=== PATIENT | female | born 1995 | race Caucasian/White ===

== ENCOUNTER 2017-03-15 04:18 | Emergency (ER) | payer OTHER ==
[2017-03-15] MEDS ORDERED: NS 0.9% 1000 ML* 1,000 ML IV ONE (04:58)
[2017-03-15 05:31] LABS: Urine Bacteria Absent (Absent); Urine Bilirubin Negative (Negative); Urine Glucose Negative (Negative); Urine Nitrite Negative (Negative)
[2017-03-15 06:23] LABS: Hematocrit 42 % (35-47); Hemoglobin 13.5 g/dl (12.0-16.0); Mean Corpuscular HGB Conc 33 g/dl (31-36); Mean Corpuscular Hemoglobin 27 pg (27-31); Mean Corpuscular Volume 82 fL (80-97); Mean Platelet Volume 10 um3 (7.4-10.4); Red Blood Count 5.09 10^6/ul (4.0-5.4); Red Cell Distribution Width 14 % (10.5-15); White Blood Count 13.3 10^3/ul (3.5-10.8)
[2017-03-15 06:40] LABS: ALT 16 U/L (7-52); AST 23 U/L (13-39); Albumin 4.8 g/dL (3.2-5.2); Alkaline Phosphatase 47 U/L (34-104); Anion Gap 9 mmol/L (2-11); Blood Urea Nitrogen 15 mg/dL (6-24); CO2 Carbon Dioxide 26 mmol/L (22-32); Calcium 10.4 mg/dL (8.6-10.3); Chloride 101 mmol/L (101-111); EGFR African American 91.9 (>60); EGFR Non-African American 71.4 (>60); Globulin 3.3 g/dL (2-4); Glucose 89 mg/dL (70-100); Lipase 18 U/L (11.0-82.0); Potassium 3.4 mmol/L (3.5-5.0); Sodium 136 mmol/L (133-145); Total Protein 8.1 g/dL (6.4-8.9)
[2017-03-15] MEDS ORDERED: Iohexol 300* (CONTRAST) 10 ML SDV IV ONE (06:56)
--- NOTE | 2017-03-15 08:17 | RAD ---
CLINICAL HISTORY: Nausea and lower abdominal pain. COMPARISON: None TECHNIQUE: Contrast enhanced CT examination of the abdomen and pelvis from the lung bases through the initial tuberosities. The patient received 16 mL Omnipaque 300 intravenously prior to imaging.The patient received oral contrast as well prior to imaging. FINDINGS: VISUALIZED LUNG BASES: The visualized lung bases are grossly clear. There is no pleural effusion. ABDOMEN AND PELVIS: The liver, spleen, pancreas and adrenal glands are grossly normal in appearance. The gallbladder is normal. The kidneys are normal in appearance without focal mass, calcification or signs of hydronephrosis. The oral contrast has progressed as far as the base of the cecum. The small and large bowel are not distended. The appendix is identified in the right lower quadrant measuring just under 8 mm in diameter abscesses coronal image 31 and sagittal image 31). There is trace oral contrast in the proximal portion of the appendix. There is no definite periappendiceal inflammatory change. There is no periappendiceal fluid collection or free air anywhere in the peritoneum. There is a moderate to large amount of stool throughout the length of the colon but no pathologic dilatation. There is no gross retroperitoneal or mesenteric lymphadenopathy. The pelvic viscera is normal in appearance. The abdominal aorta and iliac arteries are normal in course and diameter. There are no sinister bone lesions. IMPRESSION: 1. The appendix is top normal in diameter measuring just under 8 mm but lacks acute inflammatory changes associated with appendicitis. 2. Incidentally noted is a moderate to large amount of stool throughout the length of the colon without pathologic dilatation. Please correlate to symptoms and history of constipation. 3. The CT is otherwise normal.
[2017-03-15 08:52] VITALS: BP 121/56
[2017-03-15] MEDS ORDERED: Magnesium CITRATE* 300 ML BTL PO ONE (08:58)
[2017-03-15] MEDS ORDERED: Bisacodyl SUPP* 10 MG SUPP PR ONE (08:58)
--- NOTE | 2017-03-15 09:06 | ED ---
Thom Martinez Benjamin, scribed for Favian Sheikh MD on 03/15/17 at 0900 . Progress - Progress Note Progress Note: 21yo female c/o RLQ pain. Signout pt from Dr. Brody at the end of his shift, pending CT A/P report. - Results/Orders Results/Orders: CT A/P W IMPRESSION: 1. The appendix is top normal in diameter measuring just under 8 mm but lacks acute inflammatory changes associated with appendicitis. 2. Incidentally noted is a moderate to large amount of stool throughout the length of the colon without pathologic dilatation. Please correlate to symptoms and history of constipation. 3. The CT is otherwise normal. Re-Evaluation - Re-Evaluation First Eval Re-Evaluation Time: 09:00 Comment: Pt states that her pain is now resolved. Reviewed CT report, and advised pt to increased fluid and fiber intake. Course/Dx - Diagnoses Provider Diagnoses: Abdominal pain The documentation as recorded by the Thom roberts Benjamin accurately reflects the service I personally performed and the decisions made by me, Favian Sheikh MD.
== END 2017-03-15 09:11 ==
LOC: ED 04:18
DX: R10.9 Unspecified abdominal pain (principal); R10.31 Right lower quadrant pain
CPT/HCPCS: 36415; 74177; 80053; 81003; 81015; 83690; 84702; 85025; 85610; 85730; 87086; 99282; A9270-GY; Q9967